=== PATIENT | male | born 1955 | race African-American/Black ===

== ENCOUNTER 2025-09-23 22:32 | Inpatient (IN) | payer MEDICARE, MEDICAID ==
[~2025-09-23] VITALS: Ht 172.7 cm; Wt 58.1 kg
[~2025-09-23 22:32] MED LIST: EPINEPHRINE 0.1MG/ML (1:10,000) 10ML SYR ONE; ETOMIDATE 2MG/ML 10ML VIAL IV ONE; ROCURONIUM BROMIDE 10MG/ML VIAL 5ML IV ONE; SODIUM BICARBONATE 8.4% 50MEQ/50ML SYR IV ONE
[2025-09-23 22:40] VITALS: PULSE 125; RESP 16
[2025-09-23] MEDS ORDERED: VANCOMYCIN 1G PREMIX 200 ML IV ONE (22:45)
[2025-09-23] MEDS: PIPERACILLIN/TAZO 3.375G/50ML 50 ML IV ONE (22:54)
[2025-09-23] MEDS ORDERED: FENTANYL 2500MCG/250ML PMX 250 ML IV SCH (23:00)
[2025-09-23] MEDS: NOREPINEPHRINE 8MG/250ML PMX 250 ML IV ONE (23:00)
[2025-09-23] MEDS: PROPOFOL 10MG/ML 100ML 100 ML IV SCH (23:01)
[2025-09-23] MEDS ORDERED: FENTANYL 2500MCG/250ML PMX 250 ML IV PRN (23:04)
[2025-09-23] MEDS: ROCURONIUM BROMIDE 10MG/ML VIAL 5ML IV ONE (23:05)
[2025-09-23] MEDS: ETOMIDATE 2MG/ML 10ML VIAL IV ONE (23:05)
[2025-09-23] MEDS: SODIUM CHLORIDE 0.9% (SEPSIS BOLUS) IV ONE (23:06)
[2025-09-23 23:21] LABS: BASOPHILS % 0.5 % (0.0-2.0); EOSINOPHILS % 1.1 % (0.0-5.0); HEMATOCRIT. 33.0 % (42.0-52.0); HEMOGLOBIN. 10.3 g/dL (14.0-18.0); LYMPHOCYTES % 30.8 % (20.0-50.0); MEAN PLATELET VOLUME 8.3 fl (7.4-10.4); MONOCYTES % 10.4 % (2.0-8.0); NEUTROPHILS % 57.2 % (40.0-76.0); PLATELET 288 x1000/uL (130-400); RED BLOOD CELL COUNT 4.16 mill/uL (4.7-6.1); RED CELL DISTRIBUTION WIDTH 20.9 % (11.6-14.6)
[2025-09-23 23:31] LABS: CREATININE 1.4 mg/dL (0.6-1.3); UREA NITROGEN BLOOD 23 mg/dL (9-23)
[2025-09-23 23:33] LABS: ASPARTATE AMINOTRANSFERASE 31 IU/L (<34); BILIRUBIN DIRECT < 0.1 mg/dL (<=3.0); BILIRUBIN TOTAL 0.3 mg/dL (0.1-1.0); INR 1.0; PROTEIN TOTAL 6.3 g/dL (6.0-8.3)
[2025-09-24] VITALS (66 sets, daily range): BP systolic 58–207; BP diastolic 40–124; PULSE 62–107; RESP 16–32; TEMP 33.2–37.9; O2SAT 99
[2025-09-24] MEDS ORDERED: ACETAMINOPHEN 650MG SUPP PR PRN (00:30)
[2025-09-24 00:44] LABS: BG BASE EXCESS -4.3 mmol/L (-2.0-3.0); BG CARBOXYHEMOGLOBIN 0.5 % (0.5-1.5); BG DEOXYHEMOGLOBIN 0.1 % (0.0-5.0); BG FRACTION INSPIRED OXYGEN 100; BG HCO3 ACT 20.4 mmol/L (21.0-28.0); BG METHEMOGLOBIN 0.3 % (0.5-1.5); BG OXYGEN SATURATION 99.9 % (94.0-98.0); BG OXYHEMOGLOBIN 99.1 % (94.0-98.0); BG PCO2 36.1 mmHg (35.0-48.0); BG PEEP (cmH2O) 10.0 cmH2O; BG PH 7.370 (7.350-7.450); BG PO2 378.3 mmHg (83.0-108.0); BG SAMPLE SITE RIGHT RADIAL; BG TIDAL VOLUME(mL) 450.0 mL; BG TOTAL HEMOGLOBIN 11.0 g/dL (13.5-17.5); BG VENT MODE VENT - AC; BG VENT RATE 16.0 set
[2025-09-24] MEDS ORDERED: DOPAMINE 400MG/250ML PREMIX 250 ML IV PRN (00:45)
[2025-09-24] MEDS ORDERED: DOXYCYCLINE 100MG/100ML 100 ML IV SCH ×2 (01:00)
[2025-09-24 01:19] LABS: CLARITY URINE CLEAR (CLEAR); COLOR URINE YELLOW (YELLOW); GLUCOSE URINE NEGATIVE (NEGATIVE); KETONES URINE NEGATIVE (NEGATIVE); LEUKOCYTE ESTERASE URINE 2+ (NEGATIVE); NITRITE URINE NEGATIVE (NEGATIVE); OCCULT BLOOD URINE TRACE (NEGATIVE); PH URINE 7.5 (4.5-8.0); PROTEIN URINE NEGATIVE (NEGATIVE); SPECIFIC GRAVITY URINE 1.013 (1.005-1.030); UROBILINOGEN URINE 0.2 E.U./dL (0.2-1.0)
[2025-09-24] MEDS: VANCOMYCIN 1G PREMIX 200 ML IV NR (01:25)
[2025-09-24 01:43] LABS: INFLUENZA TYPE A Presumptive Negative (Pres. Neg.); INFLUENZA TYPE B Presumptive Negative (Pres. Neg.); RESPIRATORY SYNCYTIAL VIRUS Not Detected (Not Detectd)
[2025-09-24 01:48] LABS: SQUAMOUS EPITHELIAL CELL URINE 1+ /lpf (RARE/1+)
[2025-09-24 01:49] LABS: *AMPHETAMINES SCREEN URINE NEGATIVE (NEGATIVE); *BARBITURATES SCREEN URINE NEGATIVE (NEGATIVE); *BENZODIAZEPINES SCREEN URINE NEGATIVE (NEGATIVE); *COCAINE SCREEN URINE NEGATIVE (NEGATIVE); BACTERIA URINE TRACE; RBC URINE 0-2 /hpf (0-2)
[2025-09-24 01:50] LABS: CANNABINOID URINE SCREEN NEGATIVE (NEGATIVE); ECSTASY MDMA SCREEN URINE NEGATIVE (NEGATIVE); METHADONE URINE SCREEN NEGATIVE (NEGATIVE); OPIATES URINE SCREEN NEGATIVE (NEGATIVE); PHENCYCLIDINE URINE SCREEN NEGATIVE (NEGATIVE)
[2025-09-24 01:51] LABS: CREATININE 1.2 mg/dL (0.6-1.3); UREA NITROGEN BLOOD 15 mg/dL (9-23)
[2025-09-24 01:53] LABS: PHOSPHORUS 4.1 mg/dL (2.5-4.9)
[2025-09-24 01:56] LABS: TROPONIN I HIGH SENSITIVITY 103 ng/L (3.0-53)
[2025-09-24] MEDS ORDERED: IPRATROPIUM/ALBUTEROL 0.5-3(2.5)MG/3ML NEB HHN PRN (02:00)
[2025-09-24] MEDS ORDERED: GUAIFENESIN 200MG/10ML SUGAR FREE UDC PO PRN (02:00)
[2025-09-24] MEDS ORDERED: MAGNESIUM/ALUMINUM HYDROXIDE/SIMETHICONE 30ML UDC PO PRN (02:00)
[2025-09-24] MEDS ORDERED: CLONIDINE 0.1MG TABLET PO PRN (02:00)
[2025-09-24] MEDS ORDERED: DEXTROSE 50% WATER 50ML SYRINGE IV PRN (02:00)
[2025-09-24] MEDS ORDERED: DOCUSATE SODIUM 100MG CAPSULE PO PRN (02:00)
[2025-09-24] MEDS ORDERED: ACETAMINOPHEN 325MG TABLET PO PRN (02:00)
[2025-09-24] MEDS: MAGNESIUM 2 G PREMIX 50 ML IV NR (03:04)
[2025-09-24] MEDS: HYDRALAZINE 20MG/ML VIAL IV PRN (03:04)
[2025-09-24 03:34] LABS: HIV 1/2 AB P24AG Negative (Negative)
[2025-09-24] MEDS: HYDRALAZINE 20MG/ML VIAL IV NR (04:00)
[2025-09-24] MEDS: DEXT 5%/0.45% NACL 1000ML 1,000 ML IV SCH (04:04)
[2025-09-24 04:08] LABS: HEPATITIS A AB IGM NEGATIVE (Negative)
[2025-09-24 04:09] LABS: HEPATITIS B CORE AB IGM NEGATIVE (Negative)
[2025-09-24] MEDS: DOXYCYCLINE 100MG/100ML 100 ML IV SCH ×2 (04:55→17:21)
[2025-09-24] MEDS: NOREPINEPHRINE 8MG/250ML PMX 250 ML IV PRN (04:56)
[2025-09-24] MEDS ORDERED: CEFTRIAXONE 1GM/50ML 50 ML IV SCH (06:00)
[2025-09-24] MEDS: BLOOD SUGAR DIAGNOSTIC STRIP TEST SCH (06:15)
[2025-09-24] MEDS: CEFTRIAXONE 1GM/50ML 50 ML IV SCH (06:16)
[2025-09-24 06:23] LABS: HEPATITIS C AB REACTIVE (Pos) (Negative)
[2025-09-24] MEDS ORDERED: IOHEXOL-350 100 ML BOTTLE ONE (07:13)
[2025-09-24 07:45] LABS: TROPONIN I HIGH SENSITIVITY 354 ng/L (3.0-53)
[2025-09-24] MEDS: PANTOPRAZOLE SODIUM 40 MG/VIAL IV SCH (08:30)
[2025-09-24] MEDS: ENOXAPARIN 40MG/0.4ML SYR SUBCUT SCH (08:31)
[2025-09-24 08:46] LABS: PLATELET 311 x1000/uL (130-400); RED BLOOD CELL COUNT 4.75 mill/uL (4.7-6.1); RED CELL DISTRIBUTION WIDTH 20.4 % (11.6-14.6)
[2025-09-24 08:51] LABS: CREATININE 1.2 mg/dL (0.6-1.3); UREA NITROGEN BLOOD 23 mg/dL (9-23)
[2025-09-24] MEDS ORDERED: PANTOPRAZOLE SODIUM 40 MG/VIAL IV SCH (09:00)
[2025-09-24 09:30] LABS: HEPATITIS C VIR.AB > 11.00 INDEXVAL (0.00-0.80)
[2025-09-24] MEDS ORDERED: SODIUM CHLORIDE 0.9% 1,000 ML IV NR (09:30)
[2025-09-24 10:27] LABS: PHOSPHORUS 3.6 mg/dL (2.5-4.9)
[2025-09-24 12:12] LABS: BG BASE EXCESS -3.2 mmol/L (-2.0-3.0); BG CARBOXYHEMOGLOBIN 0.6 % (0.5-1.5); BG DEOXYHEMOGLOBIN 2.4 % (0.0-5.0); BG FRACTION INSPIRED OXYGEN 35; BG HCO3 ACT 18.1 mmol/L (21.0-28.0); BG METHEMOGLOBIN 0.1 % (0.5-1.5); BG OXYGEN SATURATION 97.6 % (94.0-98.0); BG OXYHEMOGLOBIN 96.9 % (94.0-98.0); BG PCO2 23.0 mmHg (35.0-48.0); BG PEEP (cmH2O) 5.0 cmH2O; BG PH 7.515 (7.350-7.450); BG PO2 91.8 mmHg (83.0-108.0); BG SAMPLE SITE RIGHT RADIAL; BG TOTAL HEMOGLOBIN 12.0 g/dL (13.5-17.5); BG VENT MODE VENT - AC/PC; BG VENT RATE 16.0 set
[2025-09-24] MEDS: ASPIRIN 81MG TABLET PO SCH (12:13)
[2025-09-24] MEDS: DEXT 5%/0.9% NACL 1,000 ML IV SCH (12:15)
[2025-09-24 13:52] LABS: TROPONIN I HIGH SENSITIVITY 652 ng/L (3.0-53)
[2025-09-24] MEDS: ACETAMINOPHEN 650MG/20.3ML UDC NG PRN (15:11)
[2025-09-24] MEDS: PROPOFOL 10MG/ML 100ML 100 ML IV PRN (16:12)
[2025-09-24 18:13] LABS: BG BASE EXCESS -3.2 mmol/L (-2.0-3.0); BG CARBOXYHEMOGLOBIN 0.2 % (0.5-1.5); BG DEOXYHEMOGLOBIN 2.3 % (0.0-5.0); BG FRACTION INSPIRED OXYGEN 35; BG HCO3 ACT 20.2 mmol/L (21.0-28.0); BG METHEMOGLOBIN 0.3 % (0.5-1.5); BG OXYGEN SATURATION 97.7 % (94.0-98.0); BG OXYHEMOGLOBIN 97.2 % (94.0-98.0); BG PCO2 30.9 mmHg (35.0-48.0); BG PEEP (cmH2O) 5.0 cmH2O; BG PH 7.434 (7.350-7.450); BG PIP 15.0 cmH2O; BG PO2 98.7 mmHg (83.0-108.0); BG SAMPLE SITE RIGHT RADIAL; BG TOTAL HEMOGLOBIN 11.3 g/dL (13.5-17.5); BG VENT MODE VENT - P/C; BG VENT RATE 16.0 set
[2025-09-24 20:49] LABS: BG BASE EXCESS -5.3 mmol/L (-2.0-3.0); BG CARBOXYHEMOGLOBIN 0.7 % (0.5-1.5); BG DEOXYHEMOGLOBIN 2.2 % (0.0-5.0); BG FRACTION INSPIRED OXYGEN 35; BG HCO3 ACT 18.0 mmol/L (21.0-28.0); BG METHEMOGLOBIN 0.2 % (0.5-1.5); BG OXYGEN SATURATION 97.8 % (94.0-98.0); BG OXYHEMOGLOBIN 96.9 % (94.0-98.0); BG PCO2 28.4 mmHg (35.0-48.0); BG PEEP (cmH2O) 5.0 cmH2O; BG PH 7.420 (7.350-7.450); BG PIP 12.0 cmH2O; BG PO2 105.4 mmHg (83.0-108.0); BG SAMPLE SITE RIGHT BRACHIAL; BG TOTAL HEMOGLOBIN 11.0 g/dL (13.5-17.5); BG VENT MODE VENT - P/C; BG VENT RATE 10.0 set
[2025-09-25] VITALS (99 sets, daily range): BP systolic 106–168; BP diastolic 62–127; PULSE 62–113; RESP 13–32; TEMP 36.4–37.1; O2SAT 99–100
[2025-09-25 01:54] LABS: TROPONIN I HIGH SENSITIVITY 353 ng/L (3.0-53)
[2025-09-25 06:51] LABS: BASOPHILS % 0.2 % (0.0-2.0); EOSINOPHILS % 0.7 % (0.0-5.0); HEMATOCRIT. 31.3 % (42.0-52.0); HEMOGLOBIN. 9.9 g/dL (14.0-18.0); LYMPHOCYTES % 7.3 % (20.0-50.0); MEAN PLATELET VOLUME 8.4 fl (7.4-10.4); MONOCYTES % 7.1 % (2.0-8.0); NEUTROPHILS % 84.7 % (40.0-76.0); PLATELET 244 x1000/uL (130-400); RED BLOOD CELL COUNT 3.91 mill/uL (4.7-6.1); RED CELL DISTRIBUTION WIDTH 20.6 % (11.6-14.6)
[2025-09-25 06:53] LABS: TROPONIN I HIGH SENSITIVITY 306 ng/L (3.0-53)
[2025-09-25 06:54] LABS: CREATININE 0.8 mg/dL (0.6-1.3)
[2025-09-25 06:55] LABS: LDL CHOLESTEROL 44 mg/dL (5-100); TRIGLYCERIDE 71 mg/dL (0-150); UREA NITROGEN BLOOD 21 mg/dL (9-23)
[2025-09-25 06:56] LABS: PHOSPHORUS 3.7 mg/dL (2.5-4.9)
[2025-09-25 06:57] LABS: T4 FREE 1.26 ng/dL (0.89-1.76)
[2025-09-25] MEDS: CEFTRIAXONE 1GM/50ML 50 ML IV SCH (07:54)
[2025-09-25 09:37] LABS: BG BASE EXCESS -2.4 mmol/L (-2.0-3.0); BG CARBOXYHEMOGLOBIN 0.2 % (0.5-1.5); BG DEOXYHEMOGLOBIN 1.1 % (0.0-5.0); BG FRACTION INSPIRED OXYGEN 28; BG HCO3 ACT 20.8 mmol/L (21.0-28.0); BG METHEMOGLOBIN 0.3 % (0.5-1.5); BG OXYGEN SATURATION 98.9 % (94.0-98.0); BG OXYHEMOGLOBIN 98.4 % (94.0-98.0); BG PCO2 30.4 mmHg (35.0-48.0); BG PEEP (cmH2O) 5.0 cmH2O; BG PH 7.453 (7.350-7.450); BG PIP 12.0 cmH2O; BG PO2 124.3 mmHg (83.0-108.0); BG SAMPLE SITE RIGHT RADIAL; BG TOTAL HEMOGLOBIN 10.7 g/dL (13.5-17.5); BG TOTAL RESPIRATORY RATE 22 b/min; BG VENT MODE VENT - P/C; BG VENT RATE 16.0 set
[2025-09-25] MEDS: ONDANSETRON HCL 4MG/2ML INJ IV PRN (10:25)
[2025-09-25] MEDS ORDERED: IPRATROPIUM BROMIDE (0.02%) 0.5MG/2.5ML NEB HHN PRN (11:45)
[2025-09-25 12:45] LABS: ASPARTATE AMINOTRANSFERASE 80 IU/L (<34); BILIRUBIN DIRECT 0.1 mg/dL (<=3.0)
[2025-09-25 12:46] LABS: BILIRUBIN TOTAL 0.3 mg/dL (0.1-1.0); PROTEIN TOTAL 6.0 g/dL (6.0-8.3)
[2025-09-25] MEDS: MAGNESIUM 2 G PREMIX 50 ML IV SCH (12:51)
[2025-09-25] MEDS: CLONIDINE 0.1MG TABLET PO SCH (14:36)
[2025-09-25] MEDS: IPRATROPIUM BROMIDE (0.02%) 0.5MG/2.5ML NEB HHN SCH (14:43)
[2025-09-25] MEDS: ACETYLCYSTEINE 200MG/ML 20% VIAL 4ML INH SCH (14:43)
[2025-09-25] MEDS: MORPHINE SULFATE 2 MG/ML INJ (NOT FOR IM USE) IV NR (17:08)
[2025-09-26] VITALS (8 sets, daily range): BP systolic 120–148; BP diastolic 62–77; PULSE 68–89; RESP 16–24; TEMP 36.6–36.8; O2SAT 97–100
[2025-09-26 13:02] LABS: BASOPHILS % 0.7 % (0.0-2.0); EOSINOPHILS % 0.7 % (0.0-5.0); HEMATOCRIT. 26.7 % (42.0-52.0); HEMOGLOBIN. 8.3 g/dL (14.0-18.0); LYMPHOCYTES % 12.1 % (20.0-50.0); MEAN PLATELET VOLUME 8.6 fl (7.4-10.4); MONOCYTES % 5.8 % (2.0-8.0); NEUTROPHILS % 80.7 % (40.0-76.0); PLATELET 226 x1000/uL (130-400); RED BLOOD CELL COUNT 3.36 mill/uL (4.7-6.1); RED CELL DISTRIBUTION WIDTH 20.3 % (11.6-14.6)
[2025-09-26 13:12] LABS: CREATININE 0.7 mg/dL (0.6-1.3); UREA NITROGEN BLOOD 12 mg/dL (9-23)
[2025-09-26 13:14] LABS: ASPARTATE AMINOTRANSFERASE 47 IU/L (<34); BILIRUBIN DIRECT 0.2 mg/dL (<=3.0); BILIRUBIN TOTAL 0.5 mg/dL (0.1-1.0); PHOSPHORUS 2.3 mg/dL (2.5-4.9); PROTEIN TOTAL 5.1 g/dL (6.0-8.3)
[2025-09-26] MEDS: ACETAMINOPHEN 325MG TABLET PO PRN (19:28)
[2025-09-26] MEDS: HYDROCODONE/ACETAMINOPHEN 5/325MG TABLET PO NR (21:42)
[2025-09-26] MEDS: MELATONIN 3MG TABLET PO SCH (23:01)
[2025-09-26] MEDS: POTASSIUM PHOSPHATE 15 MMOL in DEXT 5% WATER 245 ML IV SCH (23:02)
[2025-09-27] VITALS (9 sets, daily range): BP systolic 118–183; BP diastolic 70–89; PULSE 50–75; RESP 15–22; TEMP 36.1–36.6; O2SAT 96–100
[2025-09-27] MEDS ORDERED: MORPHINE SULFATE 2 MG/ML INJ (NOT FOR IM USE) IV ONE (02:48)
[2025-09-27] MEDS: MORPHINE SULFATE 2 MG/ML INJ (NOT FOR IM USE) IV NR (02:56)
[2025-09-27] MEDS: HYDRALAZINE HCL 10MG TABLET PO NR (06:28)
[2025-09-27] MEDS: ATENOLOL 50 MG TABLET PO SCH (10:17)
[2025-09-27] MEDS ORDERED: METOPROLOL TARTRATE 5MG/5ML VIAL IV PRN (10:30)
[2025-09-28] VITALS (9 sets, daily range): BP systolic 118–149; BP diastolic 52–94; PULSE 50–68; RESP 14–20; TEMP 36.3–37.1; O2SAT 96–98
[2025-09-28] MEDS ORDERED: REGADENOSON 0.4 MG/5 ML IV SCH (16:00)
[2025-09-28] MEDS: ATENOLOL 25MG TABLET PO SCH (20:44)
[2025-09-29] VITALS: BP 157/74; PULSE 52; RESP 17; TEMP 36.4; O2SAT 97
[2025-09-29 04:00] VITALS: BP 160/87; PULSE 103; RESP 19; TEMP 36.4; O2SAT 96
[2025-09-29 08:00] VITALS: BP 197/95; PULSE 59; RESP 16; TEMP 35.9; O2SAT 99
[2025-09-29 09:12] LABS: CREATININE 0.7 mg/dL (0.6-1.3); UREA NITROGEN BLOOD 6 mg/dL (9-23)
[2025-09-29 09:15] LABS: BASOPHILS % 0.6 % (0.0-2.0); EOSINOPHILS % 5.6 % (0.0-5.0); HEMATOCRIT. 37.4 % (42.0-52.0); HEMOGLOBIN. 11.9 g/dL (14.0-18.0); LYMPHOCYTES % 29.0 % (20.0-50.0); MEAN PLATELET VOLUME 8.3 fl (7.4-10.4); MONOCYTES % 10.8 % (2.0-8.0); NEUTROPHILS % 54.0 % (40.0-76.0); PLATELET 367 x1000/uL (130-400); RED BLOOD CELL COUNT 4.82 mill/uL (4.7-6.1); RED CELL DISTRIBUTION WIDTH 19.5 % (11.6-14.6)
[2025-09-29] MEDS ORDERED: REGADENOSON 0.4 MG/5 ML IV ONE (09:16)
[2025-09-29 12:00] VITALS: BP 189/98; PULSE 68; RESP 16; TEMP 35.8; O2SAT 98
[2025-09-29] MEDS ORDERED: POTASSIUM CHLORIDE 20MEQ TABLET SR PO SCH (13:00)
[2025-09-29] MEDS ORDERED: AMLO-504 MT (16:04)
[2025-09-29] MEDS ORDERED: ASPI-1160 PO (16:04)
[2025-09-29] MEDS ORDERED: MELA2.5T16 MT (16:04)
[2025-09-29 17:22] VITALS: BP 161/108; PULSE 78; RESP 16; TEMP 35.9; O2SAT 97
[2025-09-29] MEDS: POTASSIUM CHLORIDE 20MEQ TABLET SR PO SCH (17:25)
[2025-09-29 20:00] VITALS: BP 163/95; PULSE 61; RESP 18; TEMP 36.8; O2SAT 100
[2025-09-30] VITALS: BP 167/84; PULSE 55; RESP 19; TEMP 36.5; O2SAT 96
[2025-09-30] MEDS: CLONIDINE 0.1MG TABLET PO NR ×2 (02:04→13:59)
[2025-09-30 08:00] VITALS: BP 192/80; PULSE 60; RESP 18; TEMP 35.7; O2SAT 98
[2025-09-30] MEDS: FAMOTIDINE 20MG/2ML VIAL IV SCH (09:39)
[2025-09-30 12:00] VITALS: BP 188/60; PULSE 58; RESP 16; TEMP 36.6; O2SAT 99
[2025-09-30 14:19] VITALS: BP 158/80; PULSE 50; RESP 18; TEMP 96.8
[2025-09-30 16:00] VITALS: BP 132/66; PULSE 57; RESP 18; TEMP 35.7; O2SAT 100
[2025-09-30] MEDS ORDERED: AMLODIPINE 10MG TABLET PO SCH (17:00)
== END 2025-09-30 17:30 | DRG 917 ==
LOC: ER 22:32 → CVICU 09-24 01:00 → EDBD 09-24 01:00 → EDBEDREQTM 09-24 01:07 → EDBEDREQ 09-24 01:07 → EDBEDREQDT 09-24 01:07 → ENRESERV 09-24 01:11 → 6WST 09-26 00:35
PROVIDERS: ADMIT Internal Medicine; ATTEND Internal Medicine
PROC: 5A1945Z Respiratory Ventilation, 24-96 Consecutive Hours (ICD-10-PCS; principal; 2025-09-23)
PROC: 0BH17EZ Insertion of Endotracheal Airway into Trachea, Via Natural or Artificial Opening (ICD-10-PCS; 2025-09-23)
PROC: 5A12012 Performance of Cardiac Output, Single, Manual (ICD-10-PCS; 2025-09-23)
DX: T40.411A Poisoning by fentanyl or fentanyl analogs, accidental (unintentional), initial encounter (principal); G92.8 Other toxic encephalopathy; I46.9 Cardiac arrest, cause unspecified; N17.0 Acute kidney failure with tubular necrosis; J96.21 Acute and chronic respiratory failure with hypoxia; I21.A1 Myocardial infarction type 2; E11.9 Type 2 diabetes mellitus without complications; D50.9 Iron deficiency anemia, unspecified; I10 Essential (primary) hypertension; F19.10 Other psychoactive substance abuse, uncomplicated; B19.20 Unspecified viral hepatitis C without hepatic coma; Z20.822 Contact with and (suspected) exposure to COVID-19; E78.5 Hyperlipidemia, unspecified; E83.42 Hypomagnesemia; R74.01 Elevation of levels of liver transaminase levels; N28.1 Cyst of kidney, acquired; R00.1 Bradycardia, unspecified; E87.6 Hypokalemia; Z79.899 Other long term (current) drug therapy; Z87.891 Personal history of nicotine dependence; Y92.89 Other specified places as the place of occurrence of the external cause
CPT/HCPCS: 31500; 31720; 36415; 36600; 71045; 71275; 74174; 76700; 78452; 80048; 80061; 80076; 80305; 81003; 82140; 82375; 82550; 82728; 82805; 82962; 83036; 83540; 83550; 83605; 83735; 84100; 84145; 84439; 84443; 84460; 84484; 85025; 85027; 86705; 86709; 87070; 87340; 87420; 87426; 87804; 92610; 92950; 93005; 93017; 93306; 93970; 94003; 94070; 94640; 94664; 94760; 97162; 99291; 99292; A4606; A9500; J0360; J0696; J1308; J1650; J2270; J2405; J2470; J2543; J2704; J2785; J3010; J3373; J3475; J3490; J7030; J7042; J7060; J7608; Q9967